=== PATIENT | female | born 2000 | race Caucasian/White ===

== ENCOUNTER 2022-03-04 15:21 | Outpatient (CLI) | payer BC, SELFPAY ==
--- NOTE | 2022-03-04 15:00 | CRLHL7_ITS ---
For Patients: As a result of the Century Cures Act, medical imaging exams and procedure reports are released immediately into your electronic medical record. You may view this report before your referring provider. If you have questions, please contact your health care provider. INDICATION: Lost IUD strings. COMPARISON: None. TECHNIQUE: 2D rincon scale and color Doppler images were acquired of the pelvis using a transvaginal approach. FINDINGS: Sonographic images demonstrate a normal size and smooth outer contour of the uterus. The uterus is anteverted in position. The uterus measures 6.9 cm in length by 2.6 cm in AP diameter by 4.3 cm in transverse dimension. The myometrium has uniform echotexture. The endometrial lining measures 3 mm in composite thickness. There is an IUD within the endometrial canal which appears appropriately positioned. The right ovary measures 3.2 x 2.8 x 2.8 cm in size and the left ovary measures 3.1 x 1.4 x 1.3 cm in size. Blood flow is present within both ovaries. No free fluid in the cul-de-sac. IMPRESSION: IUD appears appropriately positioned. Exam otherwise unremarkable. Dictated by Lenore Maradiaga MD @ 03/05/2022 2:44:09 AM (Electronically Signed)
== END 2022-03-04 15:22 | disposition home or self-care (01) ==
LOC: US 15:21
PROVIDERS: Visit Provider Physician Assistant
DX: T83.32XA Displacement of intrauterine contraceptive device, initial encounter (principal)
CPT/HCPCS: 76830

== ENCOUNTER 2023-07-24 02:20 | Emergency (ER) | payer BC, SELFPAY ==
[2023-07-24 02:20] VITALS: BP 102/62; PULSE 60; RESP 16; TEMP 36.7; O2SAT 99; BMI 17.0
[2023-07-24 03:30] VITALS: BP 106/60; PULSE 58; RESP 16; O2SAT 99
--- NOTE | 2023-07-24 04:27 | ED_ITS ---
HPI - General Adult General Chief complaint: Back Injury/Pain Stated complaint: Back Pain Time Seen by Provider: 07/24/23 04:27 History of Present Illness HPI narrative: Medical documentation created in EMR down time on Carlota Miller 23-year-old female presents the emergency department for evaluation of multiple seemingly unrelated symptoms.? Her main concern is that she has had numbness in her right leg that comes from the gluteal area, wraps around the back of the leg and then around the lateral calf into the 1st and 2nd toes for the past 4 days.? No new trauma or injury but she does have a known history of L5 fractures from several years ago.? Denies a prior history of radiculopathy.? She notes absolutely no numbness or tingling.? No new trauma or injury.? She thought that the leg felt swollen though it was not visibly larger.? She spoke with a colleague at work and they thought she should be checked for a blood clot.? She has no shortness of breath.? No dizziness, no lightheadedness.? No skin changes.? She does have a known history of disc issues at the L5 area and has undergone a series of steroid injections, it sounds like her last 1 was in October.? She does have some mild ongoing back issues but from her description, it does not limit her significantly.? She reports that her symptoms felt worse at work a few days ago, she tried to call her primary care provider with no significant advice.? Now presents 4 days later to the ED. She did try taking some leftover Medrol and that has helped her pain remarkably.? She just does not understand why she still has this tingling feeling in the right leg and why it feels tight.? She does also report that she has some chest pain tonight, points to the epigastric area.? No shortness of breath, no cough, no fever, no palpitations.? It is nonexertional.? Has not tried taking any medication to help with her symptoms. Past medical history is notable for the lumbar spine issues.? She reports that she is on an IUD for contraception.? Long-term medications are reviewed, we do have records from [facility].? Nonsmoker, no pertinent travel history.? ROS is notable for the chest, epigastric and back and leg symptoms as above, otherwise denies times 12 systems. On exam, blood pressure 102 over 62, temp 98.1?, O2 sats 99% on room air and heart rate is 59 on EKG today.? Generally she is awake alert, pleasant and interactive, not in distress.? Mood behavior and affect are clinically appropriate.? No signs of intoxication or impairment.? The a head is normocephalic, atraumatic eyes with normal-appearing pupils and conjunctiva, normal gaze and appearance to eyes.? Facial bones appear normal.? Oropharynx with acyanotic lips and moist membranes.? The neck moves freely with no tenderness of the cervical spine.? Heart with regular rate rhythm, no murmurs rubs gallops lungs with good air entry in all lung baron no wheeze rales or rhonchi abdomen appears nondistended.? The lower extremities have no significant edema.? The legs are actually quite symmetric.? I feel for palpable cords and there are none.? Homans is negative bilaterally.? She does have normal sensation and strength in the legs.? Neurologically she moves all 4 extremities easily symmetrically and her gait is very normal.? Normal reflexes and strength in her legs.? The back exam shows no point bony tenderness to the midline spine there is paraspinal tenderness on the right side especially L4 through S1.? Pain worsens on exam with extension.? She does not bend at the spine at all when I ask her to flex but rather at the hip.? Any attempts to correct this seemed to worsen her pain.? Spondylosis testing on the right is strongly positive.? Strai ght leg lift on the right is mildly positive, left side is normal. Testing: EKG is performed showing normal sinus rhythm with a rate of 59, normal intervals and axis.? No significant ST or T-wave abnormalities.? I discussed doing a D-dimer to look for a blood clot and if this is positive, ultrasound.? She asked my opinion regarding this and I feel very reassured by her exam that this is not a blood clot.? I let her know that if we do an ultrasound we would need to call the tech in from home and it would take probably about 3 hours to get the results of this.? I a am happy to order this if she needs reassurance but I do not see any signs of a blood clot.? She was reassured by this.? She would like to try conservative management and treatment of the more obvious lumbar radiculopathy.? I reassured by her EKG that there really do not seem to be any signs of heart strain or tachycardia or cardiac abnormality.? I do not recommend further workup for this.? Assessment: Lumbar radiculopathy, L5. Noncardiac chest pain. I suspect that her chest symptoms are related to stomach irritation from the steroid.? Unfortunately this is a side effect that is common but the benefit of the steroid greatly outweighs the risk especially since she is having radiculopathy.? Discussed this with her.? Overall, I do recommend that we do a longer course of prednisone.? Will give 40 mg p.o. x1 and then have her continue on 20 mg b.i.d. for 5 days.? Flexeril 10 mg p.o. x1 in the ED and additional 5- 10 mg b.i.d. p.r.n..? Discussed Tylenol, will give 1000 mg here in the ED and encouraged her to continue 1000 mg every 6 hours.? Nerve pain tends to be worse at night.? It is okay to use 25-50 mg of Benadryl and or melatonin 10 mg at bedtime to helper maintenance cleaning sleep.? Symptoms should start to improve in 48 hours.? If she is not noticing any improvement, she should be re-evaluated in urgent care.? The alarm symptoms reviewed that would warrant ED presentation.? She verbalizes understanding and agreement.? Has no further questions.? Medications dispensed from [email or web address]. Related Data Home Medications Medication Instructions Recorded Confirmed levonorgestrel 20.4 mcg/24 hrs (8 1 device intrauterine ONCE 03/04/22 03/04/22 yrs) 52 mg intrauterine device (Liletta) spironolactone 25 mg tablet 25 mg PO BID 03/04/22 03/04/22 Allergies Allergy/AdvReac Type Severity Reaction Status Date / Time No Known Drug Allergies Allergy Verified 03/04/22 15:51 [facility] Medical History (Updated 07/24/23 @ 04:29 by Bruna Vieira MD) No chronic problems Surgical History (Updated 03/04/22 @ 16:45 by Geetha Hidalgo PA-C) No history of previous surgery Social History (Updated 03/04/22 @ 16:47 by Geetha Hidalgo PA-C) Narrative: College sophmore. E cigarette use twice a week. Occasional alcohol use. No illicit drug use. Discharge Plan Discharge Clinical Impression: Lumbar radiculopathy Patient Disposition: Home w/ Parent or Adult Activity Level: Activity as Tolerated Discharge Diet: Regular Prescriptions: No Action spironolactone 25 mg tablet 25 mg PO BID Liletta 20.1 mcg/24 hrs (6 yrs) 52 mg intrauterine device 1 device intrauterine ONCE Rx Instructions: as a single dose Follow Up/Referrals: Provider,Not a Local [Primary Care Provider] - Stand Alone Forms: [employer] Info Instructions
--- OUTSIDE RECORDS SUMMARY | 2023-07-24 04:28 | XMS_ITS | Referral Summary ---
Author Name Unknown Organization [place] Address [address] [place] [address] Care Team Providers Care Camp Manager Name Role Phone Pediatrics [facility] Primary Care Pr ovider Allergies No known active allergies Medications Medication Sig Dispensed Refills Start Date End Date Status methylPREDNISolone (MEDROL DOSEPAK) 4 MG tablet therapy pack Follow Package Directions 21 tablet 0 11/08/2021 Active capsaicin (ZOSTRIX) 0.025 % external cream Apply 1 g topically 3 times daily as needed (pain in lumbar region) 25 g 1 11/08/2021 Active Social History Tobacco Use Types Packs/Day Years Used Date Smoking Tobacco: Never Smokeless Tobacco: Never Alcohol Use Standard Drinks/Week Comments No 0 (1 standard drink = 0.6 oz pur e alcohol) Adolescent Education Answer Date Record ed Getting School Help Needed Not on file 03/29 Sex and Gender Information Value Date Recorded Sex Assigned at Not on file Gender Identity Not on file Sexual Orientation Not on file Last Filed Vital Signs Vital Sign Reading Time Taken Comments Blood Pressure 101/70 11/08/2021 11:37 PM CDT Pulse 63 11/08/2021 11:37 PM CDT Temperature 36.4 ??C (97.6 ??F) 11/08/2021 8:24 PM CD T Respiratory Rate 18 11/08/2021 11:37 PM CDT Oxygen Saturation 100% 11/08/2021 11:37 PM CDT Inhaled Oxygen Concentration - - Weight 61 kg (134 lb 7.7 oz) 05/20/2017 12:39 AM MEDICAL ASSISTANT PER DIEM Height 172.7 cm (5' 8) 05/20/2017 12:39 AM MEDICAL ASSISTANT PER DIEM Body Mass Index 20.45 05/20/2017 12:39 AM MEDICAL ASSISTANT PER DIEM Plan of Treatment Not on file Care Teams Camp Manager Relationship Specialty Start Date End Date Pediatrics [address], [facility] [address] [place], [place] [id number] PCP - General 05/20/17
--- OUTSIDE RECORDS SUMMARY | 2023-07-24 04:28 | XMS_ITS | Clinical Summary ---
Author Name Unknown Organization [facility] Address [place], [place] [address] Care Team Providers Care Farm Machine Tender Name Role Phone Pcp, No Primary Care Provider Unavailabl e Allergies No known active allergies Medications Medication Sig Dispensed Refills Start Date End Date Status Claravis 40 mg capsule Take 40 mg by mouth once daily. 0 01/17/2023 Active Zenatane 30 mg capsule Take 60 mg by mouth once daily. 0 04/04/2023 Active levonorgestrel (MIRENA) 20 mcg/24 hours (8 yrs) 52 mg intrauterine device (IUD) Inject 1 Device intrauterine one time. 0 Active polyethylene glycoL (MIRALAX) 17 gram/scoop powderIndications:Co nstipation, unspecified constipation type Mix 1 scoop (17 g) in liquid then take by mouth once daily. can adjust to every other day once having loos stools. 510 g 3 05/21/2023 Active Active Problems Problem Noted Date Diagnosed Date History of COVID-19 09/24/2020 Encounters Date Type Department Care Team Description 05/21/2023 6:05 PM PLANT FLOOR AUTOMATION MANAGER Ancillary Procedure [facility] [address] [place] [address] 05/21/2023 5:00 PM PLANT FLOOR AUTOMATION MANAGER Office Visit [facility] [address] [place] [phone] Pk Escobar MD Derm Problem (some skin discoloration ( white/trauma coordinator spots)); Constipation (No bowel movement in 7 days) 05/21/2023 Travel from Last 3 Months Social History Tobacco Use Types Packs/Day Years Used Date Smoking Tobacco: Never Smokeless Tobacco: Never Tobacco Cessation:Counseling Given: Yes Alcohol Use Standard Drinks/Week Comments Yes 0 (1 standard drink = 0.6 oz pur e alcohol) Sex and Gender Information Value Date Recorded Sex Assigned at Not on file Gender Identity Not on file Sexual Orientation Not on file Obstetrics History Last Filed Vital Signs Vital Sign Reading Time Taken Comments Blood Pressure 96/58 05/21/2023 5:23 PM PLANT FLOOR AUTOMATION MANAGER Pulse 71 05/21/2023 5:23 PM PLANT FLOOR AUTOMATION MANAGER Temperature 37.2 ??C (98.9 ??F) 05/21/2023 5:23 PM CS T Respiratory Rate - - Oxygen Saturation 99% 05/21/2023 5:23 PM PLANT FLOOR AUTOMATION MANAGER Inhaled Oxygen Concentration - - Weight 58.9 kg (129 lb 12.8 oz) 05/21/2023 5:23 PM PLANT FLOOR AUTOMATION MANAGER Height 170.2 cm (5' 7) 05/21/2023 5:23 PM PLANT FLOOR AUTOMATION MANAGER Body Mass Index 20.33 05/21/2023 5:23 PM PLANT FLOOR AUTOMATION MANAGER Plan of Treatment Health Maintenance Due Date Last Done Comments HPV series for age 9-26 (1 - 2-dose series) 2013 Tdap 2013 Depression screening for age 12+ 2014 HIV for age 15-65 2017 Chlamydia for age 16-24 2018 Hepatitis C screening for ag e 18-79 2020 Tetanus booster 2022 COVID-19 vaccine series ( season) 2023 09/09/2020 Influenza for age 9-49 02/11/2023 Pap test for age 21-65 2023 BMI (ht and wt on same day) for age 18+ 05/21/2024 05/21/2023 Meningococcal series for age 11-21 Aged Out No longer eligible based on patient's age to complete this topic Pneumococcal series for age 6-64 Aged Out No longer eligible based on patient's age to complete this topic Procedures Procedure Name Priority Date/Time Associated Diagnosis Comments XR ABDOMEN 2 VIEW FLAT AND UPRIGHT OR DECUBITUS STAT 05/21/2023 6:20 PM PLANT FLOOR AUTOMATION MANAGER Constipation, unspecified constipation type URINE Add On 05/21/2023 6:09 PM PLANT FLOOR AUTOMATION MANAGER Abdominal bloating URINALYSIS MICROSCOPIC Routine 05/21/2023 6:09 PM PLANT FLOOR AUTOMATION MANAGER Lower abdominal pain UA W/ SEDIMENT EXAM REFLEXED PER CRITERIA Routine 05/21/2023 6:09 PM PLANT FLOOR AUTOMATION MANAGER Lower abdominal pain from Last 3 Months Results * XR ABDOMEN 2 VIEW FLAT AND UPRIGHT OR DECUBITUS (05/21/2023 6:20 PM PLANT FLOOR AUTOMATION MANAGER) Anatomical Region Laterality Modality Abdomen Computed Radiogr aphy 05/21/2023 6:20 PM PLANT FLOOR AUTOMATION MANAGER Impressions 05/21/2023 6:37 PM PLANT FLOOR AUTOMATION MANAGER No radiographic evidence of bowel obstruction or pneumoperitoneum. Minimal formed stool in the colon. IUD overlying the pelvis. Visualized lung bases are clear. No acute bony abnormality. Narrative 05/21/2023 6:37 PM PLANT FLOOR AUTOMATION MANAGER For Patients: As a result of the Cures Act, medical imaging exams and procedure reports are released immediately into your electronic medical record. You may view this report before your referring provider. If you have questions, please contact your health care provider. EXAM: XR ABDOMEN 2 VIEW FLAT AND UPRIGHT OR DECUBITUS LOCATION: [facility] DATE: 05/21/2023 INDICATION: Constipation, Unspecified Constipation Type COMPARISON: None. Procedure Note Julian Gay MD - 05/21/2023 For Patients: As a result of the Cures Act, medical imagingexams and procedure reports are released immediately into your electronicmedical record. You may view this report before your referring provider.If you have questions, please contact your health care provider. EXAM: XR ABDOMEN 2 VIEW FLAT AND UPRIGHT OR DECUBITUS LOCATION: [facility] DATE: 05/21/2023 INDICATION: Constipation, Unspecified Constipation Type COMPARISON: None. IMPRESSION: No radiographic evidence of bowel obstruction or pneumoperitoneum. Minimalformed stool in the colon. IUD overlying the pelvis. Visualized lung basesare clear. No acute bony abnormality. Pk Escobar MD GENERAL IMAG ING * URINALYSIS MICROSCOPIC (05/21/2023 6:09 PM PLANT FLOOR AUTOMATION MANAGER) RBC 0-2 0-2, None Seen /HPF 05/21/2023 6:15 PM PLANT FLOOR AUTOMATION MANAGER [facility] WBC 0-2 0-2, 3-5, None Seen /HPF 05/21/2023 6:15 PM PLANT FLOOR AUTOMATION MANAGER [facility] BACTERIA None Seen None Seen, Rare, Few Bacteria/H PF 05/21/2023 6:15 PM PLANT FLOOR AUTOMATION MANAGER [facility] EPITHELIAL CELLS Few None Seen, Few Epi/HPF 05/21/2023 6:15 PM PLANT FLOOR AUTOMATION MANAGER [facility] Urine URINE SPECIMEN / Unknown Non-Blood / Unknown 05/21/2023 6:09 PM PLANT FLOOR AUTOMATION MANAGER 05/21/2023 6:09 PM PLANT FLOOR AUTOMATION MANAGER Pk Escobar MD URINE Performing Organization Address City/State/[facility] Co de Phone Number [facility] [phone] [place] [address], [place] * (ABNORMAL) UA W/ SEDIMENT EXAM REFLEXED PER CRITERIA (05/21/2023 6:09 PM PLANT FLOOR AUTOMATION MANAGER) COLOR Yellow Yellow Color 05/21/2023 6:15 PM PLANT FLOOR AUTOMATION MANAGER [facility] CLARITY Clear Clear Clarity 05/21/2023 6:15 PM PLANT FLOOR AUTOMATION MANAGER [facility] SPECIFIC GRAVITY,URINE 1.010 1.010, 1.015, 1.020, 1.025 05/21/2023 6:15 PM PLANT FLOOR AUTOMATION MANAGER [facility] PH,URINE 5.5 6.0, 7.0, 8.0, 5.5, 6.5, 7.5, 8.5 05/21/2023 6:15 PM PLANT FLOOR AUTOMATION MANAGER [facility] UROBILINOGEN, QUALITATIVE Normal Normal EU/dl 05/21/2023 6:15 PM PLANT FLOOR AUTOMATION MANAGER [facility] PROTEIN, URINE Negative Negative mg/dL 05/21/2023 6:15 PM PLANT FLOOR AUTOMATION MANAGER [facility] GLUCOSE, URINE Negative Negative mg/dL 05/21/2023 6:15 PM PLANT FLOOR AUTOMATION MANAGER [facility] KETONES,URINE Negative Negative mg/dL 05/21/2023 6:15 PM PLANT FLOOR AUTOMATION MANAGER [facility] BILIRUBIN,URI NE Negative Negative 05/21/2023 6:15 PM PLANT FLOOR AUTOMATION MANAGER [facility] OCCULT BLOOD,URINE Moderate(A) Negative 05/21/2023 6:15 PM PLANT FLOOR AUTOMATION MANAGER [facility] NITRITE Negative Negative 05/21/2023 6:15 PM PLANT FLOOR AUTOMATION MANAGER [facility] LEUKOCYTE ESTERASE Negative Negative 05/21/2023 6:15 PM PLANT FLOOR AUTOMATION MANAGER [facility] Urine URINE SPECIMEN / Unknown Non-Blood / Unknown 05/21/2023 6:09 PM PLANT FLOOR AUTOMATION MANAGER 05/21/2023 6:09 PM PLANT FLOOR AUTOMATION MANAGER Pk Escobar MD URINE Performing Organization Address City/[facility]/ZIP Co de Phone Number [facility] [address] [place] [address], * URINE (05/21/2023 6:09 PM PLANT FLOOR AUTOMATION MANAGER) ,URIN E Negative Negative 05/21/2023 6:44 PM PLANT FLOOR AUTOMATION MANAGER [facility] Urine URINE SPECIMEN / Unknown Non-Blood / Unknown 05/21/2023 6:09 PM PLANT FLOOR AUTOMATION MANAGER 05/21/2023 6:09 PM PLANT FLOOR AUTOMATION MANAGER Pk Escobar MD URINE Performing Organization Address City/[facility]/ZIP Co de Phone Number [facility] [address] [place] [address], from Last 3 Months Care Teams Farm Machine Tender Relationship Specialty Start Date End Date Pcp, No . PCP - General 01/04/19
--- OUTSIDE RECORDS SUMMARY | 2023-07-24 04:28 | XMS_ITS | Clinical Summary ---
Author Name Unknown Organization [place] Address [address] [place] [address] Care Team Providers Care Oliving Machine Operator Name Role Phone Pediatrics [facility] Primary Care Pr ovider Allergies No known [...] (134 lb 7.7 oz) 05/20/2017 12:39 AM GARNETT FEEDER Height 172.7 cm (5' 8) 05/20/2017 12:39 AM GARNETT FEEDER Body Mass Index 20.45 05/20/2017 12:39 AM GARNETT FEEDER Plan of Treatment Health Maintenance Due Date Last Done Comments ADVANCE CARE PLANNING 2002 ANNUAL REVIEW OF HM ORDERS 2002 CHLAMYDIA SCREENING 2002 YEARLY PREVENTIVE VISIT 2002 HIV SCREENING 2017 HEPATITIS C SCREENING 2020 COVID-19 Vaccine ( season) 2023 09/09/2020 INFLUENZA VACCINE (#1) 2023 , 04/09/2020, 04/02/2019, Additional history exists PAP 2023 PHQ-2 (once per calendar year) 2023 DTAP/TDAP/TD IMMUNIZATION (7 - Td or Tdap) 02/06/2024 02/05/2014, 10/18/2007, 08/28/2003, Additional history exists HEPATITIS B IMMUNIZATION Completed 003, 2002, 2002, Additional history exists Pneumococcal Vaccine: Pediatrics (0 to 5 Years) and At-Risk Patients (6 to 64 Years) Aged Out 12/17/2004, 01/02/2003, 2002, Additional history exists No longer eligible based on patient's age to complete this topic IPV IMMUNIZATION Completed 10/18/2007, 02/2003, 2002, Additional history exists MENINGITIS IMMUNIZATION Aged Out 02/05/2014 No l onger eligible based on patient's age to complete this topic HPV IMMUNIZATION Completed 06/17/2021, 01/18/2017 RSV MONOCLONAL ANTIBODY Aged Out No l onger eligible based on patient's age to complete this topic Care Teams Oliving Machine Operator Relationship Specialty Start Date End Date Pediatrics [address] [id number] PCP - General 05/20/17
--- NOTE | 2023-07-24 04:38 | ED.NURSE ---
pt arrived during down time. 12 lead EKG obtained at 0319 Meds given @ 0331: Flexeril 10mg Tylenol 1000mg Prednisone 40mg
--- NOTE | 2023-07-24 04:44 | ED.NURSE ---
Actual Discharge time was 5.
== END 2023-07-24 04:44 | disposition home or self-care (01) ==
LOC: ED 04:32
PROVIDERS: Emergency Provider Family Medicine; PCP Physical Medicine & Rehabilitation Sports Medicine
DX: M54.16 Radiculopathy, lumbar region (principal)
CPT/HCPCS: 99283